=== PATIENT | female | born 1935 | race Caucasian/White ===

== ENCOUNTER → 2018-02-19 | Outpatient (CLI) | payer OTHER, BC ==
[~2018-02-19] MED LIST: ACETAMINOPHEN PO; AMBIEN 5 MG TABL5 M1 PO; APAP650 PO; ARTIFICIAL TEAR15 M1 OPHTHALMIC; BIOTIN1 M1 PO; BISACODYL SUPP10 MG RECTAL; CALCIUM 500 +1 EAC5 PO; CATAPRES-TTS 10.1 MG PO; CATAPRES0.1 MG PO; CENTRUM SILVER1 EAC4 PO; CIPRO500 MG PO; CLONIDINE0.1 PO; COQ-10100 MG PO; COZAAR 50 MG TA50 M2 PO; COZAAR100 MG PO; DILTIAZEM 24HR180 M2 PO; DILTIAZEM 24HR180 MG PO; ENOXAPARIN30 MG/0.1 SUBQ; FISH OIL + D31 EACH PO; FISH OIL 1,001000 M2 PO; FLAGYL500 MG PO; HYDROCHLOROTHIA25 M2 PO; HYDROCODONE-AP1 EAC6 PO; HYDROCODONE-APA1 TA1 PO; HYZAAR 100-251 EACH PO; LEVAQUIN 500 M500 M2 PO; LEVOTHYROXIN0.112 M1 PO; MAGNESIUM400 MG PO; METAMUCIL PAC1 UDPKT PO; MOBIC7.5 MG; NATURAL BALANCE15 ML OPHTHALMIC; OCUVITE ADULT1 EACH PO; PERIDEX 0.12%473 M1; RED YEAST RICE600 MG PO; SALONPAS; SENOKOT-S1 TA1 PO; THERA-M CAPLET1 EACH PO; TRAMADOL 50 MG50 MG PO; TYLENOL325 MG PO; UNICOMPLEX M TA1 TA1 PO; VITAMIN B COMP1 EACH PO; VITAMIN B-12100 MC1 PO; VITAMIN B-625 MG PO; VITAMIN C + RO500 MG PO
== END ==
LOC: RAD 02-18 12:39
DX: Z12.31 Encounter for screening mammogram for malignant neoplasm of breast (principal)

== ENCOUNTER → 2018-12-11 | Outpatient (CLI) | payer OTHER, BC | LOC: HYPER 09:00 | DX: L97.812 Non-pressure chronic ulcer of other part of right lower leg with fat layer exposed (principal); S81.811A Laceration without foreign body, right lower leg, initial encounter; E03.9 Hypothyroidism, unspecified; E78.5 Hyperlipidemia, unspecified; G89.29 Other chronic pain; G47.00 Insomnia, unspecified; H91.90 Unspecified hearing loss, unspecified ear; I25.10 Atherosclerotic heart disease of native coronary artery without angina pectoris; I10 Essential (primary) hypertension; R73.9 Hyperglycemia, unspecified; M19.90 Unspecified osteoarthritis, unspecified site; Z87.891 Personal history of nicotine dependence; W19.XXXA Unspecified fall, initial encounter; Y93.89 Activity, other specified; Y92.89 Other specified places as the place of occurrence of the external cause; Y99.8 Other external cause status ==

== ENCOUNTER → 2018-12-18 | Outpatient (CLI) | payer OTHER, BC | LOC: HYPER 09:25 | DX: L97.212 Non-pressure chronic ulcer of right calf with fat layer exposed (principal); S81.811D Laceration without foreign body, right lower leg, subsequent encounter; E78.5 Hyperlipidemia, unspecified; E03.9 Hypothyroidism, unspecified; G47.00 Insomnia, unspecified; G89.29 Other chronic pain; H91.90 Unspecified hearing loss, unspecified ear; I10 Essential (primary) hypertension; I25.10 Atherosclerotic heart disease of native coronary artery without angina pectoris; R73.9 Hyperglycemia, unspecified; M19.90 Unspecified osteoarthritis, unspecified site; Z87.891 Personal history of nicotine dependence; W19.XXXD Unspecified fall, subsequent encounter ==

== ENCOUNTER → 2019-01-01 | Outpatient (CLI) | payer OTHER, BC | LOC: HYPER 03:42 | DX: L97.812 Non-pressure chronic ulcer of other part of right lower leg with fat layer exposed (principal); H91.90 Unspecified hearing loss, unspecified ear; E03.9 Hypothyroidism, unspecified; I10 Essential (primary) hypertension; M19.90 Unspecified osteoarthritis, unspecified site; E78.5 Hyperlipidemia, unspecified; I25.10 Atherosclerotic heart disease of native coronary artery without angina pectoris; M25.561 Pain in right knee; R73.9 Hyperglycemia, unspecified; G47.00 Insomnia, unspecified; G89.29 Other chronic pain; Z87.891 Personal history of nicotine dependence ==

== ENCOUNTER → 2019-02-23 | Outpatient (CLI) | payer OTHER, BC | LOC: RAD 11:50 | DX: Z12.31 Encounter for screening mammogram for malignant neoplasm of breast (principal) ==

== ENCOUNTER → 2020-03-08 | Outpatient (CLI) | payer OTHER, BC | LOC: BC 02-29 09:06 | PROVIDERS: ATTEND Internal Medicine | DX: R92.1 Mammographic calcification found on diagnostic imaging of breast (principal) ==

== ENCOUNTER → 2020-04-05 | Outpatient (CLI) | payer OTHER, BC | LOC: HYPER 09:29 | PROVIDERS: ATTEND Emergency Medicine | DX: S81.811A Laceration without foreign body, right lower leg, initial encounter (principal); R73.9 Hyperglycemia, unspecified; H91.90 Unspecified hearing loss, unspecified ear; E03.9 Hypothyroidism, unspecified; E78.5 Hyperlipidemia, unspecified; G89.29 Other chronic pain; G47.00 Insomnia, unspecified; I25.10 Atherosclerotic heart disease of native coronary artery without angina pectoris; I10 Essential (primary) hypertension; M19.90 Unspecified osteoarthritis, unspecified site; M51.36 Other intervertebral disc degeneration, lumbar region; Z87.891 Personal history of nicotine dependence ==

== ENCOUNTER → 2020-04-12 | Outpatient (CLI) | payer OTHER, BC | LOC: HYPER 13:52 | PROVIDERS: ATTEND Emergency Medicine | DX: S81.811D Laceration without foreign body, right lower leg, subsequent encounter (principal); R73.9 Hyperglycemia, unspecified; H91.90 Unspecified hearing loss, unspecified ear; E03.9 Hypothyroidism, unspecified; E78.5 Hyperlipidemia, unspecified; G89.29 Other chronic pain; G47.00 Insomnia, unspecified; I25.10 Atherosclerotic heart disease of native coronary artery without angina pectoris; I10 Essential (primary) hypertension; M19.90 Unspecified osteoarthritis, unspecified site; M51.36 Other intervertebral disc degeneration, lumbar region; Z87.891 Personal history of nicotine dependence; W22.8XXD Striking against or struck by other objects, subsequent encounter ==

== ENCOUNTER → 2020-11-08 | Outpatient (CLI) | payer OTHER, BC | LOC: BC 09:47 | PROVIDERS: ATTEND Internal Medicine | DX: R92.2 Inconclusive mammogram (principal); N64.4 Mastodynia ==

== ENCOUNTER → 2021-03-27 | Outpatient (CLI) | payer OTHER, BC | LOC: BC 08:37 | PROVIDERS: ATTEND Internal Medicine | DX: Z12.31 Encounter for screening mammogram for malignant neoplasm of breast (principal) ==